=== PATIENT | male | born 1980 | race Hispanic/Latino ===

== ENCOUNTER 2019-03-23 21:00 | Emergency (ER) | payer SELFPAY ==
[~2019-03-23] VITALS: Ht 180.3 cm; Wt 100.0 kg
[~2019-03-23 21:00] MED LIST: FLEXERIL PO
[2019-03-23] MEDS ORDERED: VOLTAREN - GENE75 MG PO (23:09)
[2019-03-23 23:20] VITALS: BP 120/73
[2019-03-24] MEDS ORDERED: VOLTAREN - GENE75 MG PO (10:09)
== END 2019-03-23 23:20 | disposition home or self-care (01) | DRG 914 ==
LOC: ED 21:00
DX: S19.9XXA Unspecified injury of neck, initial encounter (principal); W50.0XXA Accidental hit or strike by another person, initial encounter; Y93.61 Activity, american tackle football; Y92.009 Unspecified place in unspecified non-institutional (private) residence as the place of occurrence of the external cause

== ENCOUNTER 2021-03-09 18:04 | Emergency (ER) | payer SELFPAY ==
[~2021-03-09] VITALS: Ht 180.3 cm; Wt 100.0 kg
[~2021-03-09 18:04] MED LIST changes: +VOLTAREN - GENE75 MG PO
[2021-03-09 18:53] LABS: HEMATOCRIT 45.9 % (39.0-50.0); HEMOGLOBIN 15.3 g/dl (14.0-18.0); IMMATURE GRANULOCYTES 0.3 % (0.0-5.0); MEAN CELL VOLUME 84.7 fL CALC (80.0-100.0); MEAN CORPUSCULAR HGB 28.2 pG CALC (26.0-32.0); MEAN CORPUSCULAR HGB CONC 33.3 g/dL CAL (32.0-36.0); NEUT# 4.48 thou/uL (1.82-7.42); RED BLOOD COUNT 5.42 mill/uL (4.70-6.10); RED CELL DISTRI WIDTH 11.8 % (11.5-15.5)
[2021-03-09 19:05] LABS: ALBUMIN 4.8 g/dL (3.2-5.0); ALKALINE PHOSPHATASE 98 u/l (38-126); BILIRUBIN, TOTAL 0.6 mg/dL (0.0-1.4); BUN 20 mg/dL (9-20); BUN/CREATININE RATIO 17 (12-20 (CALC)); CHLORIDE 100 mmol/l (95-108); CREATININE 1.2 mg/dL (0.7-1.3); GFR > 60 ML/MIN (>=60 (CALC)); GFR FOR AFR.AMER. > 60 ML/MIN (>=60 (CALC)); POTASSIUM 3.7 mmol/l (3.5-5.1); SGOT/AST 35 u/l (17-59); SODIUM 139 mmol/l (137-146); TOTAL PROTEIN 8.5 g/dL (6.3-8.2)
[2021-03-09 19:10] LABS: ANION GAP 15 (6-22 (CALC)); CARBON DIOXIDE 28 mmol/l (22-30)
[2021-03-09] MEDS ORDERED: PROTONIX40 M2 PO (22:12)
[2021-03-09 22:22] VITALS: BP 103/57
== END 2021-03-09 22:21 | disposition home or self-care (01) | DRG 313 ==
LOC: ED 18:04
PROVIDERS: Family Medicine
DX: R07.9 Chest pain, unspecified (principal)
CPT/HCPCS: S0164

== ENCOUNTER 2021-05-08 12:23 | Emergency (ER) | payer SELFPAY ==
[~2021-05-08] VITALS: Ht 180.3 cm; Wt 89.3 kg
[~2021-05-08 12:23] MED LIST changes: +PROTONIX40 M2 PO
[2021-05-08 13:12] LABS: URINE BILIRUBIN - DIPSTICK NEGATIVE (NEGATIVE); URINE BLOOD DIPSTICK NEGATIVE (NEGATIVE); URINE COLOR YELLOW; URINE GLUCOSE - DIPSTICK NEGATIVE (NEGATIVE); URINE KETONE NEGATIVE (NEGATIVE); URINE LEUK ESTERASE NEGATIVE (NEGATIVE); URINE PH 6.5 (4.5-8.0); URINE PROTEIN - DIPSTICK NEGATIVE (NEG-TRACE); URINE SPECIFIC GRAVITY 1.025; URINE UROBILINOGEN - DIPSTICK 0.2 E.U./dL (0.2)
[2021-05-08 13:13] LABS: URINE NITRITE - DIPSTICK NEGATIVE (Negative)
[2021-05-08 13:14] LABS: HEMATOCRIT 46.9 % (39.0-50.0); HEMOGLOBIN 15.8 g/dl (14.0-18.0); IMMATURE GRANULOCYTES 0.2 % (0.0-5.0); MEAN CELL VOLUME 84.4 fL CALC (80.0-100.0); MEAN CORPUSCULAR HGB 28.4 pG CALC (26.0-32.0); MEAN CORPUSCULAR HGB CONC 33.7 g/dL CAL (32.0-36.0); NEUT# 3.26 thou/uL (1.82-7.42); RED BLOOD COUNT 5.56 mill/uL (4.70-6.10); RED CELL DISTRI WIDTH 11.3 % (11.5-15.5)
[2021-05-08 13:29] LABS: ALBUMIN 4.5 g/dL (3.2-5.0); ALKALINE PHOSPHATASE 90 u/l (38-126); AMYLASE 95 u/l (30-110); ANION GAP 13 (6-22 (CALC)); BILIRUBIN, TOTAL 0.4 mg/dL (0.0-1.4); BUN 21 mg/dL (9-20); BUN/CREATININE RATIO 22 (12-20 (CALC)); CARBON DIOXIDE 25 mmol/l (22-30); CHLORIDE 105 mmol/l (95-108); GFR > 60 ML/MIN (>=60 (CALC)); GFR FOR AFR.AMER. > 60 ML/MIN (>=60 (CALC)); LIPASE 120 u/l (23-300); POTASSIUM 3.6 mmol/l (3.5-5.1); SGOT/AST 27 u/l (17-59); SODIUM 140 mmol/l (137-146); TOTAL PROTEIN 8.1 g/dL (6.3-8.2)
[2021-05-08 15:17] VITALS: BP 103/65
== END 2021-05-08 15:23 | disposition home or self-care (01) | DRG 563 ==
LOC: ED 12:23
DX: S39.011A Strain of muscle, fascia and tendon of abdomen, initial encounter (principal); K42.9 Umbilical hernia without obstruction or gangrene; K76.0 Fatty (change of) liver, not elsewhere classified; X50.0XXA Overexertion from strenuous movement or load, initial encounter; Y93.H2 Activity, gardening and landscaping; Y92.007 Garden or yard of unspecified non-institutional (private) residence as the place of occurrence of the external cause

== ENCOUNTER 2022-02-02 17:44 | Emergency (ER) | payer SELFPAY ==
[~2022-02-02] VITALS: Ht 180.3 cm; Wt 96.0 kg
[2022-02-02 17:58] VITALS: BP 133/97
[2022-02-02 18:00] VITALS: BP 132/80
[2022-02-02 18:11] VITALS: BP 113/76
[2022-02-02 18:30] VITALS: BP 116/70
[2022-02-02 18:31] LABS: HEMATOCRIT 45.7 % (39.0-50.0); HEMOGLOBIN 15.3 g/dl (14.0-18.0); IMMATURE GRANULOCYTES 0.1 % (0.0-5.0); MEAN CELL VOLUME 85.7 fL CALC (80.0-100.0); MEAN CORPUSCULAR HGB 28.7 pG CALC (26.0-32.0); MEAN CORPUSCULAR HGB CONC 33.5 g/dL CAL (32.0-36.0); NEUT# 3.14 thou/uL (1.82-7.42); RED BLOOD COUNT 5.33 mill/uL (4.70-6.10); RED CELL DISTRI WIDTH 11.7 % (11.5-15.5)
[2022-02-02 18:38] LABS: ALBUMIN 4.6 g/dL (3.2-5.0); ALKALINE PHOSPHATASE 96 u/l (38-126); ANION GAP 13 (6-22 (CALC)); BILIRUBIN, TOTAL 0.4 mg/dL (0.0-1.4); BUN 20 mg/dL (9-20); BUN/CREATININE RATIO 18 (12-20 (CALC)); CARBON DIOXIDE 27 mmol/l (22-30); CHLORIDE 104 mmol/l (95-108); CPK 358 u/l (52-200); CREATININE 1.1 mg/dL (0.7-1.3); GFR > 60 ML/MIN (>=60 (CALC)); GFR FOR AFR.AMER. > 60 ML/MIN (>=60 (CALC)); POTASSIUM 3.6 mmol/l (3.5-5.1); SGOT/AST 30 u/l (17-59); SODIUM 140 mmol/l (137-146); TOTAL PROTEIN 8.1 g/dL (6.3-8.2)
[2022-02-02 18:55] VITALS: BP 116/70
== END 2022-02-02 19:06 | disposition home or self-care (01) | DRG 641 ==
LOC: ED 17:44
PROVIDERS: Family Medicine
DX: E86.0 Dehydration (principal)

== ENCOUNTER 2022-05-12 19:02 | Emergency (ER) | payer OTHER ==
[~2022-05-12] VITALS: Ht 180.3 cm; Wt 100.0 kg
[2022-05-12 19:46] VITALS: BP 127/84
[2022-05-12] MEDS ORDERED: ZYRTEC10 MG PO (19:51)
[2022-05-12] MEDS ORDERED: PREDNISONE20 MG PO (19:51)
[2022-05-12] MEDS ORDERED: NAPROXEN500 MG PO (19:51)
[2022-05-12 20:01] VITALS: BP 120/79
[2022-05-12 20:15] VITALS: BP 117/82
== END 2022-05-12 20:43 | disposition home or self-care (01) | DRG 607 ==
LOC: ED 19:02
DX: S50.362A Insect bite (nonvenomous) of left elbow, initial encounter (principal); W57.XXXA Bitten or stung by nonvenomous insect and other nonvenomous arthropods, initial encounter; Y93.H9 Activity, other involving exterior property and land maintenance, building and construction; Y99.0 Civilian activity done for income or pay